=== PATIENT | female | born 2000 | race Caucasian/White ===

== ENCOUNTER 2019-10-08 04:48 | Inpatient (IN) | payer MEDICAID ==
[2019-10-08 05:32] LABS: APPEARANCE,URINE SLIGHTLY-CLOUDY; BILIRUBIN,URINE NEGATIVE (NEGATIVE); COLOR,URINE YELLOW; GLUCOSE, URINE NEGATIVE (NEGATIVE); KETONES,URINE NEGATIVE (NEGATIVE); LEUKOCYTE ESTERASE,URINE LARGE (NEGATIVE); NITRITE,URINE NEGATIVE (NEGATIVE); PROTEIN,URINE NEGATIVE (NEGATIVE); UROBILINOGEN,URINE NEGATIVE mg/dL (<2.0)
--- NOTE | 2019-10-08 05:43 | Non Stress Test Report ---
Non Stress Test Datetime Report Generated by CPN: 10/08/2019 05:42 DEMOGRAPHIC EGA NST: 39.1 INDICATION Indication for Study (NST) Other: LC URINE RESULTS Urine Protein, NST: Negative Urine Ketones - NST: Negative Urine Glucose - NST: Negative Urine Blood - NST: Positive MONITORING Monitor Explained: Monitor Explained; Test Explained; Patient Verbalized Understanding Time on Monitor: 10/08/2019 05:08 Time off Monitor: 10/08/2019 05:41 NST Duration: 33 NST INTERVENTIONS NST Interventions: PO Hydration Physician Notified NST: Bhumi BABY A: [id number] BABY A Movement : Present Contraction Frequency : OCC FHR Baseline : 135 Accelerations : 15X15 Decelerations : None Variability : Moderate 6-25bpm NST Review: Meets Criteria for Reactive NST NST Review and Verified By : Claribel Hightower RN NST Results: Reactive NST REPORT Report Trigger: Send Report
[2019-10-08 05:47] LABS: URINE AMPHETAMINES SCREEN NEGATIVE; URINE BARBITURATES SCREEN NEGATIVE; URINE BENZODIAZEPINES SCREEN NEGATIVE; URINE COCAINE SCREEN NEGATIVE; URINE MARIJUANA (THC) SCREEN NEGATIVE; URINE METHADONE SCREEN NEGATIVE; URINE PHENCYCLIDINE SCREEN NEGATIVE
[2019-10-08] MEDS ORDERED: MISOPROSTOL 0.2 MG TABLET ONE (07:27)
[2019-10-08] MEDS ORDERED: OXYTOCIN 10 UNIT/ML VIAL ONE (07:27)
[2019-10-08] MEDS ORDERED: OXYTOCIN/NORMAL SALINE 20 UNIT/1,000 ML RTUINJ ONE (07:27)
[2019-10-08] MEDS ORDERED: LIDOCAINE 1% INJ-PF (10 MG/ML) 30 ML SDV ONE (07:27)
[2019-10-08] MEDS ORDERED: PENICILLIN G-K 5 MILLION UNIT VIAL ONE (07:28)
[2019-10-08] MEDS ORDERED: RINGERS SOLUTION,LACTATED 1,000 ML IV ONE (07:32)
[2019-10-08] MEDS ORDERED: PENICILLIN G POTASSIUM 5,000,000 UNIT in DEXTROSE 5%-WATER 100 ML IV ONE (07:32)
[2019-10-08] MEDS ORDERED: RINGERS SOLUTION,LACTATED 1,000 ML IV PRN (07:32)
[2019-10-08] MEDS ORDERED: ONDANSETRON HCL INJ/PF 4 MG/2 ML SDV ONE (08:23)
[2019-10-08] MEDS ORDERED: ONDANSETRON HCL INJ/PF 4 MG/2 ML SDV IV PRN (08:30)
[2019-10-08 08:40] LABS: ABSOLUTE EOSINOPHILS # (AUTO) 0.1 10^3/uL (0.0-0.6); ABSOLUTE MONOCYTES (AUTO) 0.6 10^3/uL (0.1-1.4); ABSOLUTE NEUT (AUTO) 7.8 10^3/uL (1.7-8.2); BASOPHILS % (AUTO) 0.3 % (0-2); EOSINOPHILS % (AUTO) 0.5 % (0-6); HEMATOCRIT 34.2 % (36.0-47.0); HEMOGLOBIN 11.9 g/dL (12.0-15.5); LYMPHOCYTES % (AUTO) 19.5 % (13-45); MEAN CORPUSCULAR HEMOGLOBIN 30.7 pg (27.0-33.4); MEAN CORPUSCULAR HGB CONC 34.7 g/dL (32.0-36.0); MEAN CORPUSCULAR VOLUME 88 fl (80-97); MONOCYTES % (AUTO) 5.5 % (3-13); PLATELET COUNT 182 10^3/uL (150-450); RED BLOOD COUNT 3.86 10^6/uL (3.72-5.28); RED CELL DISTRIBUTION WIDTH 13.9 % (11.5-14.0); SEGMENTED NEUTROPHILS % (AUTO) 74.2 % (42-78); TOTAL CELLS COUNTED % (AUTO) 100 %; WHITE BLOOD COUNT 10.4 10^3/uL (4.0-10.5)
--- NOTE | 2019-10-08 08:57 | Admission Physical ---
Datetime Report Generated by CPN: 10/08/2019 08:56 CURRENT ADMISSION Chief Complaint: Uterine Contractions Admit Impression : Term, Intrauterine ; Active Labor Admit Plan: Admit to Unit; Initiate Labor Protocol ALLERGIES Medication Allergies: No Medication Allergies: No Known Allergies (10/08/2019) Latex: No Latex Allergies OBSTETRICAL HISTORY EDC: 10/14/2019 00:00 : 1 Para: 0 Gestational Diabetes: No Rh Sensitization: No Incompetent Cervix: No MARTINEZ: No Infertility: No ART Treatment: No Uterine Anomaly: No IUGR: No Hx Previous C/S: No Macrosomia: No Hx Loss/Stillborn: No PIH: No Hx : No Placenta Previa/Abruption: No Depression/PP Depression: No PTL/PROM: No Post Hemorrhage: No Current Procedures: Ultrasound; NST Obstetrical History Comments: G1: current umb cord varix IOL per MFM @ 39 weeks SEE RECORDS Alcohol: No Marijuana : No Cocaine: No Other Illicit Drugs: No Cigarettes: Never Smoker. [id number] MEDICAL HISTORY Diabetes: No Blood Transfusion: No Pulmonary Disease (Asthma, TB): No Breast Disease: No Hypertension: No Plastic Sewer Surgery: No Heart Disease: No Hosp/Surgery: No Autoimmune Disorder: No Anesthetic Complications: No Kidney Disease: No Abnormal Pap Smear: No Neuro/Epilepsy: No Psychiatric Disorders: No Other Medical Diseases: No Hepatitis/Liver Disease: No Significant Family History: No Varicosities/Phlebitis: No Trauma/Violence : No Thyroid Dysfunction: No Medical History Comments: febrile seizures as infant INFECTIOUS HISTORY Gonorrhea: No Genital Herpes: No Chlamydia: No Tuberculosis: No Syphilis: No Hepatitis: No HIV/AIDS Exposure: No Rash or Viral Illness: No HPV: No PHYSICAL EXAM General: Normal HEENT: Normal Neurologic: Normal Thyroid: Deferred Heart: Normal Lungs: Normal Breast: Deferred Back: Normal Abdomen: Normal Genitourinary Exam: Normal Extremities: Normal DTRs: Normal Pelvic Type: Adequate Vital Signs: Reviewed VAGINAL EXAM Dilatation: 3 Effacement: 90 Station: -2 Contraction Comments: q 3-5 MEMBRANES Membranes: Intact FETUS A EGA: 39.1 Variability: Moderate 6-25bpm Accelerations: 15X15 Decelerations: None FHR Category: Category II Presentation: Vertex Admit Comment: 19yo at 39+1ega presents in early labor. SHe was supposed to be induced due to umbilical cord varix. Also noted dilateral 3rd ventricle at 28wks - varix and aortic root dilation. GBS positive - PCN for GBS positive. Admit for pitocin and anticipate . PLANS FOR LABOR AND DELIVERY Other Pain Management Plans: unsure Feeding Preference: Breast Circumcision: N/A INFORMED CONSENT Informed Consent Obtained: Vaginal Delivery; Induction of Labor; Risks, Benefits and Alternatives Discussed Signature: with User ID: [email or web address]
[2019-10-08] MEDS ORDERED: HYDROMORPHONE HCL INJ/PF 2 MG/ML AMPULE IV ONE (09:30)
[2019-10-08] MEDS ORDERED: HYDROMORPHONE HCL INJ/PF 2 MG/ML AMPULE ONE (09:32)
[2019-10-08] MEDS ORDERED: PROMETHAZINE HCL 25 MG SUPP.RECT PR PRN (11:24)
[2019-10-08] MEDS ORDERED: MEASLES,MUMPS&RUBELLA VACC/PF 0.5 ML VIAL SUBCUT PRN (11:24)
[2019-10-08] MEDS ORDERED: NA PHOS,M-B/NA PHOS,DI-BA (ADULT) 133 ML ENEMA PR PRN (11:24)
[2019-10-08] MEDS ORDERED: MAGNESIUM HYDROXIDE SUSP 30 ML UDCUP PO PRN (11:24)
[2019-10-08] MEDS ORDERED: DIBUCAINE 1% OINTMENT 28 GM TP PRN (11:24)
[2019-10-08] MEDS ORDERED: PROMETHAZINE HCL 25 MG TABLET PO PRN (11:24)
[2019-10-08] MEDS ORDERED: BENZOCAINE/MENTHOL AEROSOL SPRAY 56 ML TOP PRN (11:24)
[2019-10-08] MEDS ORDERED: ACETAMINOPHEN 650 MG SUPP.RECT PR PRN (11:24)
[2019-10-08] MEDS ORDERED: ZOLPIDEM TARTRATE 5 MG TABLET PO PRN (11:24)
[2019-10-08] MEDS ORDERED: PSEUDOEPHEDRINE HCL 30 MG TABLET PO PRN (11:24)
[2019-10-08] MEDS ORDERED: GLYCERIN/WITCH HAZEL LEAF 1 EACH MED..WIPE TP PRN (11:24)
[2019-10-08] MEDS ORDERED: ACETAMINOPHEN WITH CODEINE #3 TABLET PO PRN (11:24)
[2019-10-08] MEDS ORDERED: PROMETHAZINE HCL INJ 25 MG/1 ML VIAL IV PRN (11:24)
[2019-10-08] MEDS ORDERED: OXYTOCIN/NORMAL SALINE 20 UNIT/1,000 ML RTUINJ IV PRN (11:24)
[2019-10-08] MEDS ORDERED: DIPH/PERTUSS(ACELL)/TETANUS VAC/PF 0.5 ML SYR (>=10YO) IM PRN (11:24)
[2019-10-08] MEDS ORDERED: DIPHENHYDRAMINE HCL 25 MG CAPSULE PO PRN (11:24)
[2019-10-08] MEDS ORDERED: PENICILLIN G POTASSIUM 2,500,000 UNIT in DEXTROSE 5%-WATER 50 ML IV SCH (11:33)
--- NOTE | 2019-10-08 11:50 | Warning Signs in Babies ---
VOD Warning Signs Datetime Report Generated by [facility]: 10/08/2019 11:50 VOD#608 -Warning Signs in Babies: Viewed with Parent(s)/Family (10/08/2019 11:40:Lexi Wilson RN)
[2019-10-08] MEDS ORDERED: BENZOCAINE/MENTHOL AEROSOL SPRAY 56 ML ONE (12:54)
--- NOTE | 2019-10-08 13:39 | Delivery Summary ---
Del Sum A-C Datetime Report Generated by CPN: 10/08/2019 13:39 DELIVERY PERSONNEL DELIVERY PERSONNEL: [id number] Delivery Doctor:: Dewayne Elena MD Labor and Delivery Nurse:: Rowan Taylor RNigniter assembler Nurse:: Lexi Wilson RN Nursery Nurse:: Litzy Ferrer RN Golf Course Assistant/MANAGER MEDICAL: Shanika Loredo, ALLERGIST MATERNAL INFORMATION Delivery Anesthesia: None Medications After Delivery: Pitocin Bolus-Please Comment; Cytotec 1000mcg Per Rectum/Vagina Meds After Delivery Comment: 20 units Pitocin in 1000mL NS open bolus Delivery QBL: 200 Maternal Complications: None LABOR SUMMARY EDC: 10/14/2019 00:00 No. Babies in Womb: 1 LABOR INFORMATION Reason for Induction: Not Applicable Onset of Labor: 10/08/2019 08:00 Complete Dilatation: 10/08/2019 10:58 Oxytocin: Induction Group B Beta Strep: positive Steroids Given: None Reason Steroids Not Administered: Not Applicable MEMBRANES Membranes Rupture Method: Spontaneous Rupture of Membranes: 10/08/2019 11:10 Length of Rupture (hr): 0.03 Amniotic Fluid Color: Clear Amniotic Fluid Amount: Small STAGES OF LABOR Stage 1 hr: 2 Stage 1 min: 58 Stage 2 hr: 0 Stage 2 min: 14 Stage 3 hr: 0 Stage 3 min: 3 Total Time in Labor hr: 3 Total Time in Labor min: 15 VAGINAL DELIVERY Episiotomy: None Laceration #1: Vaginal Laceration Extension #1: N/A Laceration Repair: Not Applicable Laceration Repair Note: does not require repair Sponge Count Correct: N/A Sharps Count Correct: N/A CSECTION DELIVERY Primary Indication: N/A Secondary Indication: N/A CSection Incidence: N/A Labor: N/A Elective: N/A BABY A INFORMATION Infant Delivery Date/Time: 10/08/2019 11:12 Method of Delivery: Vaginal Nurse Controlled Delivery: No Born in Route : No : N/A Forceps: N/A Vacuum Extraction: N/A Shoulder Dystocia : No PRESENTATION/POSITION BABY A Presentation: Cephalic Cephalic Presentation: Vertex Vertex Position: Left Occipital Anterior Breech Presentation: N/A PLACENTA INFORMATION BABY A Placenta Delivery Time : 10/08/2019 11:15 Placenta Method of Delivery: Spontaneous Placenta Status: Delivered SCORES BABY A Heart Rate 1 min: >100 bpm Resp Effort 1 min: Good Cry Reflex Irritability 1 min: Cough or Sneeze or Pulls Away Muscle Tone 1 min: Active Motion Color 1 min: Blue/Pale SCORE 1 MIN: 8 Heart Rate 5 min: >100 bpm Resp Effort 5 min: Good Cry Reflex Irritability 5 min: Cough or Sneeze or Pulls Away Muscle Tone 5 min: Active Motion Color 5 min: Body [place], Extremities Blue SCORE 5 MIN: 9 INFANT INFORMATION BABY A Gestational Age at Delivery: 39.1 Gestational Status: Full Term- 39- 40.6 Weeks Infant Outcome : Liveborn Condition : Stable Infant Sex: Female IDENTIFICATION BABY A Verification Date/Time: 10/08/2019 11:39 ID Band Number: [id number] Mother's Name Verified: Yes RN Verifying : Rosalia Taylor RN, Rosalia Wilson RN WEIGHT/LENGTH BABY A Birthweight (gm): 2951 Infant Weight (lb): 6 Weight (oz): 8 Infant Length (in): 19.00 Infant Length (cm): 48.26 CORD INFORMATION BABY A No. Cord Vessels: 3 Nuchal Cord : Around Neck x2, Loose Cord Blood Taken: Yes-For Eval (Mom's Blood Type - or O+) Infant Suction: None ASSESSMENT BABY A Complications: None Physical Findings at Delivery: Within Normal Limits Skin to Skin: Yes Transferred To: Remains with Mother BABY B INFORMATION : N/A SIGNATURES Signature: with User ID: [email or web address]
[2019-10-08] MEDS: IBUPROFEN 800 MG TABLET PO SCH ×2 (15:23→22:05)
[2019-10-08] MEDS: FERROUS SULFATE 325 MG TABLET PO SCH (17:28)
[2019-10-08] MEDS: DOCUSATE SODIUM 100 MG CAPSULE PO SCH (17:28)
[2019-10-08] MEDS: FAMOTIDINE 20 MG TABLET PO SCH (22:06)
[2019-10-09] MEDS: IBUPROFEN 800 MG TABLET PO SCH ×3 (05:12→21:39)
[2019-10-09 06:26] LABS: HEMATOCRIT 29.8 % (36.0-47.0); HEMOGLOBIN 10.3 g/dL (12.0-15.5); MEAN CORPUSCULAR HEMOGLOBIN 31.2 pg (27.0-33.4); MEAN CORPUSCULAR HGB CONC 34.6 g/dL (32.0-36.0); MEAN CORPUSCULAR VOLUME 90 fl (80-97); PLATELET COUNT 145 10^3/uL (150-450); WHITE BLOOD COUNT 10.1 10^3/uL (4.0-10.5)
[2019-10-09] MEDS: DOCUSATE SODIUM 100 MG CAPSULE PO SCH ×2 (09:29→18:09)
[2019-10-09] MEDS: SENNOSIDES/DOCUSATE 8.6-50 MG 1 EACH TABLET PO SCH (09:29)
[2019-10-09] MEDS: FAMOTIDINE 20 MG TABLET PO SCH ×2 (09:29→21:39)
[2019-10-09] MEDS: PRENATAL VITAMIN W DHA CAPSULE PO SCH (09:29)
[2019-10-09] MEDS: FERROUS SULFATE 325 MG TABLET PO SCH ×2 (09:29→18:09)
--- NOTE | 2019-10-09 10:37 | PDOC PROGRESS REPORT ---
Subjective-OB Progress Note for:: 10/09/19 Subjective: Pt came in with spont labor onset prior to scheduled IOL. She is feeling great today, reports light bleeding, reg diet and voiding without difficulty. Physical Exam (OB) Vital Signs: Temp Pulse Resp BP Pulse Ox 97.6 F 63 18 116/60 100 10/08/19 20:50 10/08/19 20:50 10/08/19 20:50 10/08/19 20:50 10/08/19 20:50 Intake & Output 10/08/19 10/09/19 10/10/19 06:59 06:59 06:59 Intake Total 400 Balance 400 Weight 85.4 kg - PIH/Pre-Eclampsia DTR's: 1 + - Lochia Lochia Amount: Small 10-25 ml Lochia Color: Rubra/Red - Abdomen Description: Soft, Round Hernia Present: No Fundal Description: Firm, Midline Fundal Height: u/u - u/2 Objective-Diagnostic Laboratory: 10/09/19 06:11 10/09/19 06:11 WBC 10.1 RBC 3.30 L Hgb 10.3 L Hct 29.8 L MCV 90 MCH 31.2 MCHC 34.6 RDW 14.0 Plt Count 145 L Assessment and Plan(PN) - Assessment and Plan (1) (spontaneous vaginal delivery) Is this a current diagnosis for this admission?: Yes (2) Normal course Is this a current diagnosis for this admission?: Yes (3) Carrier or suspected carrier of group B Streptococcus Is this a current diagnosis for this admission?: Yes - Time Spent with Patient Time with patient: Less than 15 minutes Medications reviewed and adjusted accordingly: Yes - Disposition Anticipated Discharge: Home Within: within 24 hours
[2019-10-10] MEDS: IBUPROFEN 800 MG TABLET PO SCH ×2 (06:07→13:09)
[2019-10-10 07:55] VITALS: BP 127/77
[2019-10-10] MEDS: DOCUSATE SODIUM 100 MG CAPSULE PO SCH (09:14)
[2019-10-10] MEDS: SENNOSIDES/DOCUSATE 8.6-50 MG 1 EACH TABLET PO SCH (09:14)
[2019-10-10] MEDS: FERROUS SULFATE 325 MG TABLET PO SCH (09:14)
[2019-10-10] MEDS: FAMOTIDINE 20 MG TABLET PO SCH (09:14)
[2019-10-10] MEDS: PRENATAL VITAMIN W DHA CAPSULE PO SCH (09:14)
--- NOTE | 2019-10-10 09:50 | PDOC DISCHARGE SUMMARY ---
Impression - Admit/DC Date/PCP Admission Date/Primary Care Provider: 10/08/19 07:19 Discharge Date: 10/10/19 - Assessment Summary: term vaginal delivery, stable, ready for discharge - Additional Information Resuscitation Status: Full Code Discharge Diet: As Tolerated, Regular Discharge Activity: Activity As Tolerated, Balance Activity w/Rest, No Lifting Over 10 Pounds, Pelvic Rest, No tub bath, Walk Frequently Prescriptions: Ibuprofen [Motrin 800 mg Tablet] 800 mg PO Q8HP PRN #20 tablet PRN Reason: Abdominal Cramping Docusate Sodium [Colace 100 mg Capsule] 100 mg PO BID #60 capsule Ferrous Sulfate [Feosol 325 mg Tablet] 325 mg PO BID #60 tablet Home Medications: Vit,Calc76/Iron/Folic [Prenatabs Rx Tablet] 1 tab PO DAILY 10/08/19 Docusate Sodium [Colace 100 mg Capsule] 100 mg PO BID #60 capsule 10/10/19 Ferrous Sulfate [Feosol 325 mg Tablet] 325 mg PO BID #60 tablet 10/10/19 Ibuprofen [Motrin 800 mg Tablet] 800 mg PO Q8HP PRN #20 tablet 10/10/19 Results Laboratory Results: WBC 10.1 10^3/uL (4.0-10.5) 10/09/19 06:11 RBC 3.30 10^6/uL (3.72-5.28) L 10/09/19 06:11 Hgb 10.3 g/dL (12.0-15.5) L 10/09/19 06:11 Hct 29.8 % (36.0-47.0) L 10/09/19 06:11 MCV 90 fl (80-97) 10/09/19 06:11 MCH 31.2 pg (27.0-33.4) 10/09/19 06:11 MCHC 34.6 g/dL (32.0-36.0) 10/09/19 06:11 RDW 14.0 % (11.5-14.0) 10/09/19 06:11 Plt Count 145 10^3/uL (150-450) L 10/09/19 06:11 Lymph % (Auto) 19.5 % (13-45) 10/08/19 08:03 Camp % (Auto) 5.5 % (3-13) 10/08/19 08:03 Eos % (Auto) 0.5 % (0-6) 10/08/19 08:03 Baso % (Auto) 0.3 % (0-2) 10/08/19 08:03 Absolute Neuts (auto) 7.8 10^3/uL (1.7-8.2) 10/08/19 08:03 Absolute Lymphs (auto) 2.0 10^3/uL (0.5-4.7) 10/08/19 08:03 Absolute Monos (auto) 0.6 10^3/uL (0.1-1.4) 10/08/19 08:03 Absolute Eos (auto) 0.1 10^3/uL (0.0-0.6) 10/08/19 08:03 Absolute Basos (auto) 0.0 10^3/uL (0.0-0.2) 10/08/19 08:03 Seg Neutrophils % 74.2 % (42-78) 10/08/19 08:03 Urine Color YELLOW 10/08/19 04:55 Urine Appearance SLIGHTLY-CLOUDY 10/08/19 04:55 Urine pH 7.0 (5.0-9.0) 10/08/19 04:55 Ur Specific [place] 1.010 10/08/19 04:55 Urine Protein NEGATIVE mg/dL (NEGATIVE) 10/08/19 04:55 Urine Glucose (UA) NEGATIVE mg/dL (NEGATIVE) 10/08/19 04:55 Urine Ketones NEGATIVE mg/dL (NEGATIVE) 10/08/19 04:55 Urine Blood MODERATE (NEGATIVE) H 10/08/19 04:55 Urine Nitrite NEGATIVE (NEGATIVE) 10/08/19 04:55 Urine Bilirubin NEGATIVE (NEGATIVE) 10/08/19 04:55 Urine Urobilinogen NEGATIVE mg/dL (<2.0) 10/08/19 04:55 Ur Leukocyte Esterase LARGE (NEGATIVE) H 10/08/19 04:55 Urine Ascorbic Acid NEGATIVE (NEGATIVE) 10/08/19 04:55 Urine Opiates Screen NEGATIVE 10/08/19 04:55 Urine Methadone Screen NEGATIVE 10/08/19 04:55 Ur Barbiturates Screen NEGATIVE 10/08/19 04:55 Ur Phencyclidine Scrn NEGATIVE 10/08/19 04:55 Ur Amphetamines Screen NEGATIVE 10/08/19 04:55 U Benzodiazepines Scrn NEGATIVE 10/08/19 04:55 Urine Cocaine Screen NEGATIVE 10/08/19 04:55 U Marijuana (THC) Screen NEGATIVE 10/08/19 04:55 RPR NONREACTIVE (NONREACTIVE) 10/08/19 08:03 Blood Type O POSITIVE 10/08/19 08:03 Antibody Screen NEGATIVE 10/08/19 08:03
== END 2019-10-10 13:32 | disposition home or self-care (01) | DRG 806 ==
LOC: LC 04:48 → LR 07:19 → 2S 13:18
PROVIDERS: ADMIT Obstetrics & Gynecology Gynecology; ATTEND Obstetrics & Gynecology Gynecology
PROC: 10E0XZZ Delivery of Products of Conception, External Approach (ICD-10-PCS; principal; 2019-10-08)
PROC: 3E033VJ Introduction of Other Hormone into Peripheral Vein, Percutaneous Approach (ICD-10-PCS; 2019-10-08)
DX: O99.824 Streptococcus B carrier state complicating childbirth (principal); D62 Acute posthemorrhagic anemia; Z37.0 Single live birth; O90.81 Anemia of the puerperium; O69.81X0 Labor and delivery complicated by cord around neck, without compression, not applicable or unspecified; Z28.20 Immunization not carried out because of patient decision for unspecified reason; Z79.899 Other long term (current) drug therapy; Z3A.39 39 weeks gestation of pregnancy
CPT/HCPCS: 36415; 80307; 81005; 85025; 85027; 86592; 86850; 86900; 86901; J1170; J2405; J2540; J2590; J3490; J7060